=== PATIENT | female | born 1985 | race Caucasian/White ===

== ENCOUNTER 2018-11-05 23:19 | Inpatient (IN) | payer MEDICAID ==
[~2018-11-05] VITALS: Ht 165.1 cm; Wt 54.9 kg
[2018-11-06] MEDS ORDERED: ACETAMINOPHEN 325MG TABLET PO ONE (00:30)
[2018-11-06 01:03] LABS: CLARITY URINE CLEAR (CLEAR); COLOR URINE YELLOW (YELLOW); KETONES URINE NEGATIVE (NEGATIVE); LEUKOCYTE ESTERASE URINE NEGATIVE (NEGATIVE); NITRITE URINE NEGATIVE (NEGATIVE); OCCULT BLOOD URINE TRACE (NEGATIVE); PH URINE 6.5 (4.5-8.0); PROTEIN URINE NEGATIVE (NEGATIVE); SPECIFIC GRAVITY URINE 1.004 (1.005-1.030); UROBILINOGEN URINE 0.2 E.U./dL (0.2-1.0)
[2018-11-06 01:17] LABS: BASOPHILS % 0.5 % (0.0-2.0); EOSINOPHILS % 1.3 % (0.0-5.0); HEMATOCRIT. 32.2 % (36.0-48.0); HEMOGLOBIN. 11.2 g/dL (12.0-16.0); LYMPHOCYTES % 33.2 % (20.0-50.0); MEAN CORPUSCULAR HEMOGLOBIN 31.1 pg (28.0-32.0); MEAN CORPUSCULAR VOLUME 89.8 fL (81.0-99.0); MEAN PLATELET VOLUME 7.3 fl (7.4-10.4); MONOCYTES % 5.6 % (2.0-8.0); NEUTROPHILS % 59.4 % (40.0-76.0); PLATELET 171 x1000/uL (130-400); RED BLOOD CELL COUNT 3.59 mill/uL (4.2-5.4); RED CELL DISTRIBUTION WIDTH 13.7 % (11.6-14.6)
[2018-11-06 01:21] LABS: CHLORIDE 108 mEq/L (98-107)
[2018-11-06 01:23] LABS: INR 1.1
[2018-11-06 01:24] LABS: *AMPHETAMINES SCREEN URINE NEGATIVE (NEGATIVE); *BARBITURATES SCREEN URINE NEGATIVE (NEGATIVE); *BENZODIAZEPINES SCREEN URINE NEGATIVE (NEGATIVE)
[2018-11-06 01:25] LABS: *COCAINE SCREEN URINE NEGATIVE (NEGATIVE); CANNABINOID URINE SCREEN NEGATIVE (NEGATIVE); METHADONE URINE SCREEN NEGATIVE (NEGATIVE)
[2018-11-06 01:25] LABS: ETHANOL BLOOD < 10 mg/dL
[2018-11-06 01:26] LABS: OPIATES URINE SCREEN NEGATIVE (NEGATIVE); PHENCYCLIDINE URINE SCREEN NEGATIVE (NEGATIVE)
[2018-11-06 01:28] LABS: LDL CHOLESTEROL 57 mg/dL (5-100)
[2018-11-06 01:31] LABS: HCG SCREEN NEGATIVE
[2018-11-06] MEDS ORDERED: ASPIRIN 325MG TABLET PO ONE (02:30)
[2018-11-06 09:02] VITALS: BP 135/84
[2018-11-06] MEDS ORDERED: BENA10TA10 PO (09:09)
[2018-11-06 13:37] VITALS: BP 106/76
[2018-11-06 13:44] VITALS: BP 106/76
== END 2018-11-06 16:00 | disposition home or self-care (01) | DRG 58 ==
LOC: ER 23:19 → 7WST 11-06 04:19 → EDBEDREQTM 11-06 04:23 → EDBEDREQ 11-06 04:23 → EDBEDREQSVC 11-06 04:23 → ENRESERV 11-06 07:13 → 7WST 11-06 09:39
PROVIDERS: ADMIT Internal Medicine; ATTEND Internal Medicine
DX: R20.0 Anesthesia of skin (principal); I10 Essential (primary) hypertension
CPT/HCPCS: 36415; 70551; 71045; 72100; 72148; 80061; 80305; 80320; 82465; 83036; 83721; 84484; 84703; 93005; 99285; G0480